=== PATIENT | female | born 1970 | race Native Hawaiian/Other Pacific Islander ===

== ENCOUNTER 2016-08-02 12:12 | Outpatient (CLI) | payer BC | END 2016-08-02 23:42 | disposition home or self-care (01) | LOC: RAD 12:12 | DX: R06.02 Shortness of breath (principal) ==

== ENCOUNTER 2018-10-22 09:24 | Outpatient (CLI) | payer OTHER | END 2018-10-22 22:44 | disposition home or self-care (01) | LOC: RAD 09:24 | DX: M79.652 Pain in left thigh (principal) ==

== ENCOUNTER 2020-07-02 08:21 | Outpatient (CLI) | payer OTHER | END 2020-07-02 20:37 | disposition home or self-care (01) | LOC: MAMMO 08:21 | PROVIDERS: ATTEND Nurse Practitioner Family | DX: Z12.31 Encounter for screening mammogram for malignant neoplasm of breast (principal) ==

== ENCOUNTER 2021-08-27 11:45 | Outpatient (CLI) | payer OTHER | END 2021-08-27 19:37 | disposition home or self-care (01) | LOC: MAMMO 11:45 | PROVIDERS: ATTEND Nurse Practitioner Family | DX: Z12.31 Encounter for screening mammogram for malignant neoplasm of breast (principal); M79.672 Pain in left foot ==

== ENCOUNTER 2021-09-22 07:56 | Outpatient (CLI) | payer OTHER | END 2021-09-22 21:32 | disposition home or self-care (01) | LOC: RESP 07:56 | PROVIDERS: ATTEND Internal Medicine Sleep Medicine | DX: R06.09 Other forms of dyspnea (principal); R07.89 Other chest pain ==